=== PATIENT | female | born 1980 | race Caucasian/White ===

== ENCOUNTER 2021-06-20 09:51 | Emergency (ER) | payer OTHER ==
[2021-06-20 10:10] VITALS: BP 107/65; PULSE 115; TEMP 100.3
[2021-06-20] MEDS ORDERED: ACETAMINOPHEN 500 MG TABLET (FP) PO ONE (11:28)
[2021-06-20] MEDS ORDERED: ACETAMINOPHEN 500 MG TABLET (FP) ONE (11:32)
[2021-06-22 00:06] LABS: SARS-CoV-2 NAA Not Detected (Not Detected)
== END 2021-06-20 13:13 | disposition home or self-care (01) ==
LOC: JER 09:51
DX: J09.X2 Influenza due to identified novel influenza A virus with other respiratory manifestations (principal)
CPT/HCPCS: 71046-TC-FY; 87804; 93005; 93010; 99284-25; C9803-CS; U0003; U0005